=== PATIENT | female | born 1940 | race Caucasian/White ===

== ENCOUNTER → 2016-10-16 | Day surgery (SDC) | payer MEDICARE, BC ==
[2016-10-15 16:39] LABS: HEMATOCRIT 42.5 % (36.0-48.0); HEMOGLOBIN 13.8 g/dL (12-16); MCH 30.2 pg (26.0-34.0); MCHC 32.5 g/dL (31.0-37.0); MEAN PLATELET VOLUME 10.7 fL (7.4-10.4); RBC 4.57 10x6/uL (4.00-5.40); RDW 14.2 % (11.5-14.5); WBC 5.2 10x3/uL (4.8-10.8)
[~2016-10-16] VITALS: Ht 160 cm; Wt 70.5 kg
[2016-10-16] VITALS (11 sets, daily range): BP systolic 112–157; BP diastolic 50–88; Ht 160 cm; Wt 70.5 kg
[~2016-10-16] MED LIST: OMEPRAZOLE20 M1 PO; PRAVACHOL40 MG PO; SYNTHROID88 MCG PO
--- NOTE | 2016-10-16 13:35 | NUR ---
1115 NOTED LARGE BRUISE ON LEFT LOWER ABDOMEN, SANDY.
--- NOTE | 2016-10-16 15:30 | NUR ---
RECEIVED FROM RECOVERY, SLIGHT DISCOMFORT IN HER HIPS, PAIN MEDS GIVEN, WILL CONTINUE TO MONITOR
--- NOTE | 2016-10-16 23:00 | NUR ---
PT VOIDED TWICE FOR TOTAL OF 150 MLS. BLADDER SCANNED 339 MLS. PT STATED SHE NEEDS TO VOID AGAIN AND VOIDED ANOTHER 150 MLS. VAGAINAL PACKING COMING OUT A LITTLE. C/O NAUSEA AND VOMITING APPROX 500 MLS CLEAR EMESIS. NO OTHER NEEDS. WILL CONTINUE TO MONITOR.
[2016-10-17] VITALS: BP 154/67
[2016-10-17 04:00] VITALS: BP 155/60
--- NOTE | 2016-10-17 05:52 | NUR ---
PT VOIDED 200 MORE MLS. REMOVED VAGINAL PACKING. NO OTHER NEEDS. WILL REASSESS AND CONTINUE TO MONITOR.
--- NOTE | 2016-10-17 06:43 | NUR ---
ASSISTED PT UP TO BEDSIDE COMMODE TO VOID 350 MLS. PT C/O RIGHT HIP PAIN. PT IS STIFF AND NEEDS MUCH ASSISTANCE JUST TO TRANSFER TO BEDSIDE COMMODE. SHE HAS HISTORY OF OSTEOARTHRITIS WITH RIGHT HIP PAIN. WILL NEED BEDSIDE COMMODE AT HOME.
--- NOTE | 2016-10-17 07:30 | NUR ---
AWAKE, HAS 350 URINE OUTPUT THIS AM, DENIES NEEDS, ASSESSMENT COMPLETE, SOME BURNING WHILE URINATING, HAVING A HARD TIME PUTTING PRESSURE ON HER RIGHT LEG, STATES SHE HAS OSTEOARTHRITIS, WILL CONTINUE TO MONITOR 1400: UP WALKING WITH WALKER AROUND BED TO CHAIR, STATES HER HIP FEELS MUCH BETTER BUT WOULD PROBABLY NEED TO SPEND ONE MORE NIGHT
[2016-10-17 08:05] VITALS: BP 141/63
--- NOTE | 2016-10-17 09:17 | OP ---
PATIENT NAME: HEYDI ARELLANO MEDICAL RECORD: [id number] :42 LOCATION:[id number] ADMISSION DATE: SURGEON: GODWIN HARDY MD DATE OF OPERATION: 10/16/2016 SURGEON: Godwin Hardy MD. ANESTHESIA: General anesthesia by Dr. Talamantes. WRAPPER CASHIER: None. PREOPERATIVE DIAGNOSES: Cystocele grade II, uterine prolapse grade I, Eland-Walker scale. POSTOPERATIVE DIAGNOSES: Cystocele grade II, uterine prolapse grade I, Eland-Walker scale. PROCEDURES PERFORMED: Cystoscopy, cystocele repair with cadaveric dermis graft 10 x 10 cm trimmed so that the anterior and posterior distance under the bladder is 5 cm. SPECIMENS: None. ESTIMATED BLOOD LOSS: 50 mL. COMPLICATIONS: None. CLINICAL HISTORY: This is a 76-year-old female 2, who still has her uterus in place. She noticed a bulge emanating from the vagina. She does not have any stress incontinence. She does not have any issues emptying her bladder. There was some sense of pelvic heaviness and primarily this visible bulging from the vagina is highly disturbing to her psychologically. She wished to have it repaired. Risks of surgery were discussed with the patient including urinary retention, unmasking of occult stress urinary incontinence, bleeding, infection and issues of the graft material itself. Initially when I discussed the situation with her, she was amenable to using mesh for the pelvic prolapse repair. However, on examining out shelves today, we do not have any suitable mesh for pelvic prolapse repair. We only have hernia mesh available as polypropylene mesh. We do have cadaveric dermis available. I discussed this with her in the holding area and she was okay with using cadaveric dermis. We will therefore proceed using a 10 x 10 sheet of cadaveric dermis. She was given Ancef 1 gram and gentamicin 40 mg IV. DESCRIPTION OF PROCEDURE: The patient was given induction of general anesthesia. She was placed in dorsal lithotomy position and prepped and draped. When I attempted to put a weighted speculum down, it was evident that she had quite severe vaginal stenosis. In order to make room to work in, I had to create an episiotomy at the 6 o'clock position on the posterior fourchette. This allowed room for the weighted speculum to be placed. Also, the lateral moffett of the labia majora were retracted laterally using stay sutures of #2 nylon. These were anchored to the medial thighs. A Conner catheter was then inserted to drain the bladder. This was put to bag drainage during the case. The cystocele was quite evident. We could find the cervix also, which was also descending, but not to the level of the introitus. A T-shaped incision was marked out over the anterior vaginal wall. The crossbar of the T was at the OPERATIVE REPORT [id number] HEYDI ARELLANO level of the bladder neck. The vertical wire of T runs along the anterior vaginal wall midline. The entire anterior vaginal wall was infiltrated with saline containing 20 units of Pitressin per 100 mL of injectable saline. This was used for hydrodissection. Incision was made using a 15 blade. Tenotomy scissors were used to raise the vaginal mucosal flaps circumferentially around the incision. We then continued our dissection with Metzenbaum scissors. In the midline, we the bladder from the anterior vaginal wall down to the level of the cervical neck. Laterally, we extended to the level of the attachments of the pubocervical fascia to the arcus tendinous. Here, the attachment was broken down bluntly using the finger for dissection. Anteriorly, we could enter the space containing the obturator membrane as well as the iliac crest. The periosteum of the ileum is Sal's ligament. This was palpable. Posteriorly, we entered the presacral space where we identified the ischial tuberosity. This was the attachment site for the sacrospinous ligament. All this blunt dissection was done using a finger. This was done on each side. At this point, we hydrated the graft in saline containing 100 mg of gentamicin. The graft was hydrated for at least 5 minutes as per the instructions. I used a flexible plastic ruler and measured the distances. Laterally from ischial spine to ischial spine around the bladder encompassed 10 cm. This was fortuitously also the size of our graft, which is 10 x 10. The anterior and posterior distance from the bladder neck to the cervical neck was 5 cm. I measured out a distance of 6 cm from 1 edge of the graft towards the middle of the graft. An Arcuate incision line was marked out using a marking pen. This was then cut out using Metzenbaum scissors. This left a large arch shape to our graft. The graft arms that resulted will head posteriorly to the sacrospinous ligaments. The arch is to prevent compression of the rectum and difficulty with defecation. I left a little bit of redundant graft material in case the tying down of the sutures would lead to retraction of the graft posteriorly. We then placed 4 suspensory sutures. They were placed using a [employer] suture tank driver. Monocryl 0 sutures were used. The posterior sutures were placed through the sacrospinous ligament about 1 cm medial to its insertion in the ischial spine. The intention to place it immediately was to avoid hitting the pudendal nerves and arteries, which wrap around the ischial spine. This was done on each side and a firm, strong holds through the ligament was obtained as evidenced by pulling firmly on the suture and not having the sutures pull out. On the left side, I managed to get the suture through Sal's ligament. On the right side, I was not able to get through the periosteum so easily and therefore I chose instead to go through the obturator membrane at its apex. Thus, we had our 4 suspensory sutures in. Using a Rainey needle and the suture on one the posterior sutures, the suture was passed through the posterior graft arm. This was done on each side. We then gently pushed the posterior graft arms down towards the ischial spines on each side using forceps. The suture was then tied down on each side. We had excellent rearward suspension. The posterior portion of the mid graft was then tacked to the cervical neck using 4-0 Vicryl suture in simple interrupted fashion. Anteriorly, the graft appeared to be a bit too long, which it was as I had made it 6 cm long. We trimmed a little bit to suit. The ends of the graft arms anteriorly were left at full length to serve as suspensory arms. The anterior sutures were placed through the respective arms. They were then tied down. I made sure that the graft lay flat under the bladder and that there was no folding. At the level of the bladder neck, the anterior edge of the dermal graft was sutured in its midline to the detrusor muscle using 4-0 Vicryl. This was to prevent the graft from rolling up during healing. We then deflated the Conner catheter balloon and removed it. Cystoscopy was performed using a 30-degree lens and normal saline for irrigation. Single ureteral orifices were seen on each side. No bladder tumors were seen. No bladder injury of any kind OPERATIVE REPORT [id number] HEYDI ARELLANO was seen. The Conner catheter was then used to drain the bladder entirely and then taken out. The vaginal wound was irrigated out using normal saline containing gentamicin. The vaginal mucosa was reapproximated using running 4-0 Monocryl. The posterior episiotomy incision was also closed transversely using a running 4-0 Monocryl. This naturally opened up the vaginal introitus and rendered it not stenotic. A vaginal packing consisting of Kerlix infiltrated with Silvadene cream was placed into the vagina. I will keep the patient in for observation overnight. Her vaginal packing will be removed tomorrow morning. We will also verify that she can void without any issues before sending her home. TRANSINT:[id number] Voice Confirmation ID: [id number] DOCUMENT ID: [id number] GODWIN HARDY MD at 0917 CC: [id number] DICTATION DATE: 10/16/16 1352 CUT AND COVER LINE WORKER: 10/17/16 0020 [facility] [address] [place] [address]
[2016-10-17 11:51] VITALS: BP 148/50
[2016-10-17 15:48] VITALS: BP 145/59
[2016-10-17 20:00] VITALS: BP 178/61
--- NOTE | 2016-10-17 20:18 | NUR ---
REC'D. IN BED.C/O BILAT. HIP PAIN. RATING PAIN 8 ON 1-10 PAIN SCALE.ULTRAM 100MG GIVEN PO REQUESTED. WILL CONTINUE TO MONITOR FOR ANY CHGES. AND FOLLOW CURRENT PLAN OF CARE.
--- NOTE | 2016-10-17 22:57 | NUR ---
PATIENT RESTING IN BED AND DENIES NEEDS AT THIS TIME. BED IN LOWEST POSITION AND CALL LIGHT WITHIN REACH. ENCOURAGED THE PATIENT TO CALL IF SHE HAS NEEDS.
--- NOTE | 2016-10-18 00:47 | NUR ---
BLADDER SCAN RESULTS, 198
[2016-10-18 04:00] VITALS: BP 137/63
--- NOTE | 2016-10-18 07:30 | NUR ---
AWAKE, DENIES NEEDS, HOPEFUL FOR DISCHARGE, AWAITING PT FOR EVAL, WILL CONTINUE TO MONITOR, ASSESSMENT COMPLETE
[2016-10-18 09:57] VITALS: BP 143/78
[2016-10-18 11:56] VITALS: BP 155/73
[2016-10-18 16:32] VITALS: BP 152/70
--- NOTE | 2016-10-18 19:30 | NUR ---
REC'D. IN BED CONTINUES TO C/O BILAT. HIP PAIN.STATES AFTER BEING IN [place] FOR PROCEDURE DAY BEFORE.DENIES ANY DIFFICULTY VOIDING. WILL CONTINUE TO MONITOR URINARY STATUS FOR ANY CHGES. AND FOLLOW CURRENT PLAN OF CARE.
[2016-10-18 20:00] VITALS: BP 139/50
[2016-10-19 04:00] VITALS: BP 137/50
[2016-10-19 07:00] VITALS: BP 127/46
--- NOTE | 2016-10-19 10:53 | NUR ---
PATIENT STATED SHE IS CONCERNED BECAUSE SHE HAS NOT HAD A BM SINCE SHE HAS BEEN HERE. EDUCATED PATIENT ON POSSIBLE CAUSES OF CONSTIPATION.. PAIN MEDICATION, NOT AMBULATING MUCH.. ECT. PATIENT VERBALIZED UNDERSTANDING. BROUGHT PATIENT A WARM PRUNE JUICE AND SPRITE.
[2016-10-19 12:32] VITALS: BP 135/48
--- NOTE | 2016-10-19 14:18 | NUR ---
TRAMADOL 100 MG PO PER C/O PAIN OF 10. CALL LIGHT IN REACH.
[2016-10-19 14:57] VITALS: BP 128/50
--- NOTE | 2016-10-19 19:40 | NUR ---
RECIEVED SHIFT REPORT. PT IS LYING IN BED. ALERT AND ORIENTED AND ABLE TO VERBALIZE NEEDS. PT HAS NO IV AT THIS TIME. SCD'S ON. PT IS AMBULATORY BUT WAS INSTRUCTED TO CALL FOR ANY ASSISTANCE NEEDED. PT STATES PAIN IS 4/10. NO NEEDS ARE VERBALIZED AT THIS TIME. WILL CONTINUE TO MONITOR. SIDE RAILS ARE UP X 2. BED IS IN LOWEST POSITION. CALL LIGHT IS WITHIN REACH.
[2016-10-19 20:00] VITALS: BP 159/68
--- NOTE | 2016-10-19 20:26 | NUR ---
SHIFT ASSESSMENT COMPLETED. NIGHT MEDS GIVEN WITH NO PROBLEMS. PT C/O PAIN 07/25. ADMINISTERED PRESCRIBED PRN ULTRAM PER ORDER. DENIES FURTHER NEEDS. ROSE MONITOR. SIDE RAILS X 2. BED LOW. CALL LIGHT IN REACH.
[2016-10-20] VITALS: BP 144/66
[2016-10-20 04:00] VITALS: BP 135/72
--- NOTE | 2016-10-20 07:30 | NUR ---
PATIENT AWAKE, ALERT AND ORIENTED X'S 4. RESPIRATIONS ARE EVEN AND UNLABORED ON ROOM AIR. ENCOURAGED PATIENT TO GET UP AND SIT IN THE CHAIR AT LEAST THROUGHT BREAKFAST. PATIENT AGREED. PATIENT GOT OUT OF BED AND AMBULATED WITH WALKER INDEPENDENTLY. GAIT STEADY. PATIENT STATED SHE FEELS FINE THIS MORNING WALKING. ASKED PATIENT IF SHE WOULD WALK IN THE RIDDLE. PATIENT AGREED. PATIENT GOT TO THE DOOR THEN STARTED AMBULTING WALKING ON HER TOES ON HER RIGHT FOOT. PATIENT STATED "OH NO, I CANNOT GO OUT THERE AND WALK I WILL BE SICK." PATIENT TURNED AROUND AND AMBULATED TO THE CHAIR. PATIENT SAT DOWN. CALL LIGHT IN REACH. BED SIDE TABLE IN POSITION FOR BREAKFAST. PATIENT DENIES NEEDS.
[2016-10-20 08:23] VITALS: BP 139/71
[2016-10-20 13:35] VITALS: BP 145/58
[2016-10-20 16:17] VITALS: BP 143/58
--- NOTE | 2016-10-20 17:29 | NUR ---
CALLED REPORT TO [facility]
--- NOTE | 2016-10-20 18:46 | NUR ---
PT WAS RECEIVED FROM MED SURG TO ROOM 1219 BY WHEELCHAIR. GEN- AWAKE AND ALERT. LUNGS- CLEAR. HEART- RRR. ABD- SOFT, NONTENDER. EXT-NO EDEMA. BED IS LOW, SIDE RAILS UP X 2 AND CALL LIGHT IN REACH.
--- NOTE | 2016-10-20 19:15 | NUR ---
PM ROUNDS MADE, PT WATCHING TV, INFORMED PT THAT I WILL RETURN SHORTLY TO DO ASSESSMENT, PT VERBALIZES UNDERSTANDING, DENIES NEEDS AT THIS TIME
[2016-10-20 20:35] VITALS: BP 161/71
--- NOTE | 2016-10-20 20:35 | NUR ---
ASSESSMENT PER FLOW SHEET, VS OBTAINED, PT REPORTS FLATUS, NO BM, AND VOIDING BY SELF WITH NO DIFFICULTY, PT C/O RIGHT HIP, ADM ULTRAM AND 2100 MED PO PER MD ORDERS, SEE EMAR, PT DENIES FURTHER NEEDS
--- NOTE | 2016-10-20 21:30 | NUR ---
PT RESTING WITH EYES CLOSED, RESP QUIET, NO DISTRESS NOTED, LEFT UNDISTURBED AT THIS TIME
--- NOTE | 2016-10-20 22:28 | NUR ---
PT RESTING WITH EYES CLOSED, RESP QUIET, NO DISTRESS NOTED, LEFT UNDISTURBED AT THIS TIME
--- NOTE | 2016-10-21 00:26 | NUR ---
PT RESTING WITH EYES CLOSED, RESP QUIET, NO DISTRESS NOTED, LEFT UNDISTURBED AT THIS TIME
== END | disposition home or self-care (01) ==
LOC: D.OPS → D.WS 06:12 → D.MS 06:12 → D.PAN 07:30 → D.OPS 07:30 → D.PAN 10:15 → D.OPS 10:15 → D.MS 13:08 → D.OPS 14:38 → D.WS 10-20 19:24
PROVIDERS: Anesthesiology
DX: N81.2 Incomplete uterovaginal prolapse (principal); Z01.812 Encounter for preprocedural laboratory examination